=== PATIENT | female | born 1940 | race Caucasian/White ===

== ENCOUNTER 2019-03-13 18:21 | Emergency (ER) | payer MEDICARE, BC, SELFPAY ==
[2019-03-13 18:32] VITALS: BP 147/66; PULSE 71; RESP 18; TEMP 36.4; O2SAT 94; BMI 38.5
[2019-03-13 19:02] VITALS: BP 147/66; PULSE 71; RESP 18; TEMP 36.4; O2SAT 94; BMI 36.0
--- NOTE | 2019-03-13 19:12 | HMH.EDUTC ---
[facility] [place] Disposition Clinical Impression: Encounter for wound care Disposition: Home, Self-Care Condition on Discharge: Good Instructions: How to Care for a Surgical Wound, Blisters, DI for Blisters Additional Instructions: Leave blisters intack do not pop or bust they are protecting the underneath skin *Follow up with physician that did the skin graph as soon as possible for evaluation of wound on right upper thigh and further treatment *Stay off the leg as much as you can to keep from further opening wound Return if needed Straight to ER if any life threatening symptoms, redness, drainage of puss or streaking that may indicate infection Referrals: Jaime Redd [Primary Care Provider] - As needed Time of Disposition: 19:31 Medical Decision Making - Justin Inquiry Pt receiving controlled substance: No Justin was queried for this patient: No Vital Signs: 03/13/19 18:32 03/13/19 19:02 Temperature 97.5 F L 97.5 F L Temperature Source Oral Oral Pulse Rate [Left Radial] 71 71 Respiratory Rate 18 18 Blood Pressure [Right Arm] 147/66 H 147/66 H Blood Pressure Mean [Right Arm] 93 93 Blood Pressure Source [Right Arm] Automatic Cuff Automatic Cuff Blood Pressure Position [Right Arm] Sitting Sitting 02 Sat by Pulse Oximetry 94 L 94 L Oxygen Delivery Method Room Air Room Air Medical Decision Narrative: Patient educated that you can not resuture a wound that is more than 2wks old and we would clean and rebandage the wound but she needed to see the physician that performed the graph and have them re-evaluate the wound and treat accordingly Patient verbalized understanding no redness or drainage at this time from wound Patient advised to call hospital where this procedure was done and see if physican covers call and advise them of what happened and what is happening Patient verbalized understanding [facility] [place] HPI - General Stated complaint: Blisters on Right Leg Time Seen by Provider: 03/13/19 19:12 Mode of Arrival: Family Vehicle Source of Information: Patient Limitations: No Limitations Description of Symptoms (Recalled from Triage Doc. by RN): PATIENT HAD SKIN GRAFTING TO RIGHT THIGH APPROX 2 WEEKS AGO IN [place]. STATES THEY REMOVED THE STITCHES AND APPLIED STERI STRIPS WHICH CAUSED BLISTERING AROUND AREA THEN FELL OFF. AFTER STERI STRIPS FELL OFF AREA OPENED BACK UP. PATIENT HER REQUESTING WE CLOSE AREA. HAS NOT FOLLOWED UP WITH MD WHO DID PROCEDURE SINCE AREA OPENED UP. HEENT Symptoms (Recalled from RN notes): No Resp Symptoms (Recalled from RN notes): No Skin Symptoms (Recalled from RN notes): Yes MS Symptoms (Recalled from RN notes): No Functional Status (Recalled from RN notes): N/A - History of Present Illness Provider Complaint: Patient states that she had a skin graph about 2 weeks ago and they closed the graph on her right upper leg with sutures States that after they removed the sutures they placed steri strips on it State that since then the steri strips caused some blistering around the wound and the the wound area opened up some and she came in wanting to have the wound closed and to have someone look at the blisters Patient has not follow up with doctor that performed the graph since the steri strips came off - Related Data Allergies Allergy/AdvReac Type Severity Reaction Status Date / Time iodine Allergy Verified 03/13/19 19:08 Penicillins Allergy Verified 03/13/19 19:08 tramadol Allergy Verified 03/13/19 19:08 - Worker's Comp Is this a Worker's Comp case?: No [facility] History - Hepatitis A Screen Drug use history?: No High risk sexual behaviors?: No History of sexually transmitted infection?: No Currently employed?: No Childcare worker?: No Do you have indoor plumbing?: Yes Do you have electricity?: Yes Attestation statement:: This patient has been screened for Hepatitis A risk factors. I have reviewed the patient's past medical history: Yes Medical History: Reports:: Cancer - S
--- NOTE | 2019-03-13 19:21 | ED_ITS ---
[facility] [place] Clinical Impression: Encounter for wound care Disposition: Home, Self-Care Condition on Discharge: Good Instructions: How to Care for a Surgical Wound, Blisters, DI for Blisters Additional Instructions: Leave blisters intack do not pop or bust they are protecting the underneath skin *Follow up with physician that did the skin graph as soon as possible for evaluation of wound on right upper thigh and further treatment *Stay off the leg as much as you can to keep from further opening wound Return if needed Straight to ER if any life threatening symptoms, redness, drainage of puss or streaking that may indicate infection Referrals: Jaime Redd [Primary Care Provider] - As needed Time of Disposition: 19:31 Medical Decision Making - Justin Inquiry Pt receiving controlled substance: No Justin was queried for this patient: No Vital Signs: 03/13/19 18:32 03/13/19 19:02 Temperature 97.5 F L 97.5 F L Temperature Source Oral Oral Pulse Rate [Left Radial] 71 71 Respiratory Rate 18 18 Blood Pressure [Right Arm] 147/66 H 147/66 H Blood Pressure Mean [Right Arm] 93 93 Blood Pressure Source [Right Arm] Automatic Cuff Automatic Cuff Blood Pressure Position [Right Arm] Sitting Sitting 02 Sat by Pulse Oximetry 94 L 94 L Oxygen Delivery Method Room Air Room Air Medical Decision Narrative: Patient educated that you can not resuture a wound that is more than 2wks old and we would clean and rebandage the wound but she needed to see the physician that performed the graph and have them re-evaluate the wound and treat accordingly Patient verbalized understanding no redness or drainage at this time from wound Patient advised to call hospital where this procedure was done and see if physican covers call and advise them of what happened and what is happening Patient verbalized understanding [facility] [place] - General Stated complaint: Blisters on Right Leg Time Seen by Provider: 03/13/19 19:12 Mode of Arrival: Family Vehicle Source of Information: Patient Limitations: No Limitations Description of Symptoms (Recalled from Triage Doc. by RN): PATIENT HAD SKIN GRAFTING TO RIGHT THIGH APPROX 2 WEEKS AGO IN [place]. STATES THEY REMOVED THE STITCHES AND APPLIED STERI STRIPS WHICH CAUSED BLISTERING AROUND AREA THEN FELL OFF. AFTER STERI STRIPS FELL OFF AREA OPENED BACK UP. PATIENT HER REQUESTING WE CLOSE AREA. HAS NOT FOLLOWED UP WITH MD WHO DID PROCEDURE SINCE AREA OPENED UP. HEENT Symptoms (Recalled from RN notes): No Resp Symptoms (Recalled from RN notes): No Skin Symptoms (Recalled from RN notes): Yes MS Symptoms (Recalled from RN notes): No Functional Status (Recalled from RN notes): N/A - History of Present Illness Provider Complaint: Patient states that she had a skin graph about 2 weeks ago and they closed the graph on her right upper leg with sutures States that after they removed the sutures they placed steri strips on it State that since then the steri strips caused some blistering around the wound and the the wound area opened up some and she came in wanting to have the wound closed and to have someone look at the blisters Patient has not follow up with doctor that performed the graph since the steri strips came off - Related Data Allergies Allergy/AdvReac Type Severity Reaction Status Date / Time iodine Allergy Verified 03/13/19 19:08 Penicillins Allergy Verified 03/13/19 19:08
[2019-03-13 19:24] VITALS: BP 147/66; PULSE 71; RESP 18; TEMP 36.4; O2SAT 94
== END 2019-03-13 19:36 | disposition home or self-care (01) ==
PROVIDERS: Emergency Provider Nurse Practitioner; PCP Family Medicine
DX: S70.321D Blister (nonthermal), right thigh, subsequent encounter (principal)
CPT/HCPCS: G0463; 99201